=== PATIENT | male | born 1955 | race Caucasian/White ===

== ENCOUNTER 2020-05-30 21:47 | Emergency (ER) | payer MEDICARE, BC ==
[2020-05-30] MEDS ORDERED: Sodium Chloride 0.9% 1,000 ML IV ONE (21:56)
[2020-05-30] MEDS ORDERED: Diltiazem 25 MG/5 ML SDV IVPUSH ONE (21:59)
--- NOTE | 2020-05-30 22:19 | EDM.PDOC ---
ED HPI GENERAL MEDICAL PROBLEM - General Chief Complaint: Cardiovascular Problem Stated Complaint: BLOOD PRESSURE Time Seen by Provider: 05/30/20 21:50 Source of Information: Reports: Patient History Limitations: Reports: No Limitations - History of Present Illness INITIAL COMMENTS - FREE TEXT/NARRATIVE: as he lay in bed at about 9 pm felt "uncomfortable " sensation in the chest, checked his pulse and noted it was irregular. 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 Denies chest pain , dizziness , shortness of breath States this is the first time he has felt this sensation Onset: Today Onset Date: 05/30/20 Onset Time: 21:00 Duration: Getting Worse Location: Reports: Chest Quality: Reports: Ache Severity: Mild Improves with: Reports: None Worsens with: Reports: None Context: Reports: Activity Associated Symptoms: Reports: No Other Symptoms - Related Data Allergies Allergy/AdvReac Type Severity Reaction Status Date / Time No Known Allergies Allergy Verified 05/30/20 22:03 Home Meds: Home Meds Aspirin 325 mg PO DAILY #30 tab 05/31/20 [Rx] Metoprolol Succinate [Toprol XL] 25 mg PO BEDTIME #30 tab.er 05/31/20 [Rx] ED ROS GENERAL - Review of Systems Review Of Systems: See Below Constitutional: Reports: No Symptoms, Weakness. Denies: Diaphoresis HEENT: Reports: No Symptoms Respiratory: Reports: No Symptoms. Denies: Shortness of Breath, Wheezing, Pleuritic Chest Pain Cardiovascular: Reports: Palpitations Endocrine: Reports: No Symptoms GI/Abdominal: Reports: No Symptoms Musculoskeletal: Reports: No Symptoms Skin: Reports: No Symptoms Neurological: Reports: No Symptoms Psychiatric: Reports: No Symptoms Immunologic: Reports: No Symptoms ED EXAM, GENERAL - Physical Exam Exam: See Below Exam Limited By: No Limitations General Appearance: Alert, WD/WN, No Apparent Distress Eye Exam: Bilateral Eye: EOMI Ears: Normal External Exam Ear Exam: Bilateral Ear: Auricle Normal Nose: Normal Inspection Throat/Mouth: Normal Inspection, Normal Oropharynx Head: Atraumatic Neck: Supple, Limited Range of Motion Respiratory/Chest: No Respiratory Distress, Lungs Clear, Normal Breath Sounds Cardiovascular: Normal Peripheral Pulses, Regular Rate, Rhythm GI/Abdominal: Soft, Non-Tender Back Exam: Normal Inspection, Full Range of Motion Extremities: Normal Range of Motion, No Pedal Edema Neurological: Alert, Oriented, CN II-XII Intact Psychiatric: Normal Affect, Normal Mood Skin Exam: Warm, Dry, Intact Lymphatic: No Adenopathy EKG INTERPRETATION EKG Date: 05/30/20 Rhythm: A-Fib Fowler: Normal P-Wave: Variable QRS: Normal ST-T: Normal QT: Normal Course - Vital Signs Last Recorded V/S: Last Vital Signs Temp 36.9 C 05/30/20 21:48 Pulse 82 05/31/20 00:31 Resp 18 05/31/20 00:31 BP 123/80 05/31/20 00:31 Pulse Ox 97 05/31/20 00:31 - Orders/Labs/Meds Orders: Active Orders 24 hr Category Date Time Status EKG Documentation Completion [RC] ASDIRECTED Care 05/30/20 21:55 Active EKG Documentation Completion [RC] ASDIRECTED Care 05/30/20 22:26 Active EKG Documentation Completion [RC] ASDIRECTED Care 05/31/20 00:28 Active Chest 2V [CR] Stat Exams 05/30/20 22:15 Taken EKG 12 Lead [EK] Routine Ther 05/30/20 21:55 Ordered EKG 12 Lead [EK] Routine Ther 05/30/20 22:25 Ordered EKG 12 Lead [EK] Routine Ther 05/30/20 23:26 Ordered Labs: Laboratory Tests 05/30/20 05/30/20 05/30/20 Range/Units 22:00 22:00 22:00 WBC (4.5-12.0) X10-3/uL RBC (4.30-5.75) x10(6)uL Hgb (13.5-17.8) g/dL Hct (30.0-51.3) % MCV (80-96) fL MCH (27.7-33.6) pg MCHC (32.2-35.4) g/dL RDW (11.5-15.5) % Plt Count (125-369) X10(3)uL PT 10.5 (9.0-11.1) sec INR 1.01 (1.00-1.24) Sodium 139 (135-145) mmol/L Potassium 3.6 (3.5-5.3) mmol/L Chloride 103 (100-110) mmol/L Carbon Dioxide 24 (21-32) mmol/L BUN 22 H (7-18) mg/dL Creatinine 1.0 (0.70-1.30) mg/dL Est Cr Clr Drug Dosing TNP Estimated GFR (MDRD) > 60 (>60) BUN/Creatinine Ratio 22.0 H (9-20) Glucose 145 H (80-116) mg/dL Calcium 8.5 L (8.6-10.2) mg/dL Magnesium (1.8-2.5) mg/dL Troponin I 5.8 (4.0-60.3) pg/mL NT-Pro-B Natriuret Pep (<=125) pg/mL 05/30/20 05/30/20 05/30/20 Range/Units 22:00 22:00 22:00 WBC 12.0 (4.5-12.0) X10-3/uL RBC 4.87 (4.30-5.75) x10(6)uL Hgb 15.7 (13.5-17.8) g/dL Hct 46.6 (30.0-51.3) % MCV 95.8 (80-96) fL MCH 32.3 (27.7-33.6) pg MCHC 33.7 (32.2-35.4) g/dL RDW 12.9 (11.5-15.5) % Plt Count 179 (125-369) X10(3)uL PT (9.0-11.1) sec INR (1.00-1.24) Sodium (135-145) mmol/L Potassium (3.5-5.3) mmol/L Chloride (100-110) mmol/L Carbon Dioxide (21-32) mmol/L BUN (7-18) mg/dL Creatinine (0.70-1.30) mg/dL Est Cr Clr Drug Dosing Estimated GFR (MDRD) (>60) BUN/Creatinine Ratio (9-20) Glucose (80-116) mg/dL Calcium (8.6-10.2) mg/dL Magnesium 1.9 (1.8-2.5) mg/dL Troponin I (4.0-60.3) pg/mL NT-Pro-B Natriuret Pep 56 (<=125) pg/mL Meds: Medications Discontinued Medications Generic Name Dose Route Start Last Admin Trade Name Freq PRN Reason Stop Dose Admin Aspirin 324 mg 05/30/20 22:44 05/30/20 21:48 Aspirin PO 05/30/20 22:45 324 mg ONETIME ONE Administration Diltiazem HCl 20 mg 05/30/20 21:59 05/30/20 22:05 Diltiazem IVPUSH 05/30/20 22:00 20 mg ONETIME ONE Administration Sodium Chloride 1,000 mls @ 999 mls/hr 05/30/20 21:56 05/30/20 22:10 Normal Saline IV 05/30/20 22:56 999 mls/hr .BOLUS ONE Administration Metoprolol Succinate 25 mg 05/30/20 23:48 05/30/20 23:53 Toprol Xl PO 05/30/20 23:49 25 mg NOW STA Administration - Re-Assessments/Exams Free Text/Narrative Re-Assessment/Exam: 05/31/20 01:31 pt had EKG , Chest Xray and labs done. Started on IVF and cardizem. Pt observed for about one hour : HR decrease from 110-140 to 80-90 but still Afib Pt then given metoprolol discussed need to follow up with PCP for further evaluation Departure - Departure Time of Disposition: 00:30 Disposition: Home, Self-Care 01 Condition: Fair Clinical Impression: New onset a-fib, Atrial fibrillation with controlled ventricular rate, Hypertension, Dehydration, mild Prescriptions: Aspirin 325 mg PO DAILY #30 tab Metoprolol Succinate [Toprol XL] 25 mg PO BEDTIME #30 tab.er Instructions: Metoprolol extended-release tablets, Rehydration, Adult, Diltiazem injection, Managing Your Hypertension, Atrial Fibrillation, [id number], Preventing Atrial Fibrillation-Related Stroke Referrals: PCP,None [Primary Care Provider] - Forms: ED Department Discharge Additional Instructions: 1) Increase fluid / water intake and decrease amount of coffee 2) Make appointment to see your PCP in the next 2-5 days. You will need for evaluation 3) Stop Lisinopril and Hydrochlorthiazide , till you see your PCP 4) OK to start Metoprolol ( Toprol XL) Sepsis Event Note (ED) - Focused Exam Vital Signs: Vital Signs Temp Pulse Pulse Resp BP BP Pulse Ox 05/31/20 00:31 82 18 123/80 97 05/31/20 00:22 76 15 123/80 96 05/31/20 00:05 95 115/80 98 05/30/20 23:53 84 115/80 05/30/20 21:48 36.9 C 132 H 17 130/92 H 95 - My Orders Last 24 Hours: My Active Orders 05/30/20 21:55 EKG Documentation Completion [RC] ASDIRECTED EKG 12 Lead [EK] Routine 05/30/20 22:15 Chest 2V [CR] Stat 05/30/20 22:25 EKG 12 Lead [EK] Routine 05/30/20 22:26 EKG Documentation Completion [RC] ASDIRECTED 05/30/20 23:26 EKG 12 Lead [EK] Routine 05/31/20 00:28 EKG Documentation Completion [RC] ASDIRECTED - Assessment/Plan Last 24 Hours: My Active Orders 05/30/20 21:55 EKG Documentation Completion [RC] ASDIRECTED EKG 12 Lead [EK] Routine 05/30/20 22:15 Chest 2V [CR] Stat 05/30/20 22:25 EKG 12 Lead [EK] Routine 05/30/20 22:26 EKG Documentation Completion [RC] ASDIRECTED 05/30/20 23:26 EKG 12 Lead [EK] Routine 05/31/20 00:28 EKG Documentation Completion [RC] ASDIRECTED
[2020-05-30] MEDS ORDERED: Aspirin 81 MG Tab.Chew PO ONE (22:44)
[2020-05-30] MEDS ORDERED: Metoprolol Succinate 25 MG Tab.ER PO STA (23:48)
--- NOTE | 2020-05-31 11:12 | CR ---
CHEST TWO VIEWS INDICATION: Palpitations. PA and lateral views of the chest were obtained 05/30/2020 and reveal the heart to be normal in size transversely with no definite specific chamber enlargement. The aorta is tortuous with calcification in the arch. Bony structures appear to be grossly intact. Overlying EKG leads are noted. An active infiltrate or effusion was not identified. Prominent AP diameter, flattening of diaphragms leaves and hyperaeration suggest COPD. IMPRESSION: 1. No acute process. 2. COPD. 3. ASD aorta. MTDD
== END 2020-05-31 01:12 | disposition home or self-care (01) ==
LOC: FB.ED 21:47
DX: E86.0 Dehydration (principal); I10 Essential (primary) hypertension; I48.91 Unspecified atrial fibrillation
CPT/HCPCS: 36415; 71046; 80048; 83735; 83880; 84484; 85027; 85610; 93005; 96361; 96374; 99285; A9270; J3490; J7030

== ENCOUNTER 2020-08-28 06:50 | Day surgery (SDC) | payer BC, MEDICARE ==
[~2020-08-28 06:50] MED LIST: Lactated Ringers 1,000 ML IV SCH; Sodium Chloride 0.9% 10 ML Syringe FLUSH PRN
[2020-08-28] MEDS ORDERED: fentaNYL 100 MCG/2 ML SDV IV ONE (06:51)
[2020-08-28] MEDS ORDERED: Midazolam 1 MG/ML 2 ML SDV IV ONE (06:51)
[2020-08-28] MEDS ORDERED: Propofol 200 MG/20 ML SDV IV ONE (06:51)
[2020-08-28] MEDS ORDERED: Ondansetron 4 MG/2 ML SDV IVPUSH ONE (06:51)
--- NOTE | 2020-08-28 07:46 | PCM.SN.2 ---
- Free Text/Narrative Note: The need for a potential full thickness skin graft was also discussed with the patient. This will be done for coverage as needed: includes bleeding, infection poor graft take.
[2020-08-28] MEDS ORDERED: ceFAZolin 1 GM Vial IVPUSH ONE (07:52)
[2020-08-28] MEDS ORDERED: ceFAZolin 2 GM in Premix Bag 1 BAG IV ONE (08:00)
[2020-08-28] MEDS ORDERED: Lidocaine 2% 20 ML MDV INJECT ONE (08:14)
[2020-08-28] MEDS ORDERED: Bupivacaine 0.5% 30 ML SDV INJECT ONE (08:14)
--- NOTE | 2020-08-28 08:44 | PCM.OPNOTE ---
- General Post-Op/Procedure Note Date of Surgery/Procedure: 08/28/20 Operative Procedure(s): excision of squamous cell ca of left hand Findings: 3x3.5 cm lesion with 2 mm margins Pre Op Diagnosis: squaumous cell ca of skin left hand Post-Op Diagnosis: Same Anesthesia Technique: Local (2% lido with 0.5% buvipicaine 9 ml), MAC Primary Surgeon: Aquilino Barrett Anesthesia Provider: Mirian Schultz Pathology: 3 x 3.5 cm lesion EBL in mLs: 4 Complications: None Condition: Good Free Text/Narrative:: see dictation [id number]
[2020-08-28] MEDS ORDERED: Acetaminophen/Codeine 300-30 MG Tab PO PRN (08:47)
--- NOTE | 2020-08-28 09:51 | OR ---
DATE OF OPERATION: 08/28/2020 SURGEON: Aquilino Barrett MD PROCEDURE PERFORMED: Excision of a squamous cell carcinoma of the skin of the left hand. 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 INDICATIONS FOR PROCEDURE: This is a 65-year-old white male, who noticed a growth on the dorsum of his hand roughly about 3 cm in diameter in clinic. On punch biopsy, it was positive for an invasive squamous cell. The patient was offered and accepted excision with planned grafting at a later date. DESCRIPTION OF OPERATION: After an excellent IV sedation was administered, 9 mL of 1:1 mixture of 2% lidocaine and 0.5% bupivacaine was used to infiltrate the area. This did measure roughly about 3 x 3.5 cm and an additional 2 mm margin was measured out. After infiltrating the area, a circular incision was made using a combination of sharp and electrocautery dissection. The specimen was dissected down to the underlying fascia. There was one small tiny blood vessel which was clamped, divided, and tied and excised as well. Bleeding was controlled with a combination of electrocautery. There were several bleeding points that were also clamped and tied with 2-0 Vicryl ties. After assuring excellent hemostasis, the wound was dressed with Aquacel Ag, a bulky dressing was applied. The patient tolerated the procedure well, was taken to recovery. /[id number] /MODL
== END 2020-08-28 09:40 | disposition home or self-care (01) ==
LOC: FB.SDS 06:50
PROVIDERS: ATTEND Surgery
DX: C44.629 Squamous cell carcinoma of skin of left upper limb, including shoulder (principal); I10 Essential (primary) hypertension; I48.0 Paroxysmal atrial fibrillation; Z79.899 Other long term (current) drug therapy; Z79.82 Long term (current) use of aspirin; Z88.8 Allergy status to other drugs, medicaments and biological substances
CPT/HCPCS: 01810-QZ; 88305; J0690; J2001; J2250; J2405; J2704; J3010; J3490; J7120

== ENCOUNTER 2020-10-02 07:16 | Day surgery (SDC) | payer BC, MEDICARE ==
[2020-10-02] MEDS ORDERED: Propofol 200 MG/20 ML SDV IV ONE (07:17)
[2020-10-02] MEDS ORDERED: Ondansetron 4 MG/2 ML SDV IVPUSH ONE (07:17)
[2020-10-02] MEDS ORDERED: Ketamine 500 mg/10 ML MDV IV ONE (07:17)
[2020-10-02] MEDS ORDERED: Dexmedetomidine 200 MCG/2 ML SDV IV ONE (07:17)
[2020-10-02] MEDS ORDERED: fentaNYL 100 MCG/2 ML SDV IV ONE (07:17)
[2020-10-02] MEDS ORDERED: Midazolam 1 MG/ML 2 ML SDV IV ONE (07:17)
[2020-10-02] MEDS ORDERED: Lidocaine 2% 20 ML MDV INJECT ONE (09:04)
[2020-10-02] MEDS ORDERED: Bupivacaine 0.5% 30 ML SDV INJECT ONE (09:04)
[2020-10-02] MEDS ORDERED: Acetaminophen/Codeine 300-30 MG Tab PO PRN (09:55)
--- NOTE | 2020-10-02 09:57 | PCM.OPNOTE ---
- General Post-Op/Procedure Note Date of Surgery/Procedure: 10/02/20 Operative Procedure(s): full thickness skin graft Findings: 1.2x2 cm defect and graft defect dorsum of left hand donor site llq ant abd wall Pre Op Diagnosis: open wound dorsum of left hand Post-Op Diagnosis: Same Anesthesia Technique: Local (9 ml 1 % lido/0.5% buvipicaine), MAC Primary Surgeon: Aquilino Barrett Anesthesia Provider: Daya Gan Pathology: none EBL in mLs: 1 Complications: None Condition: Good Free Text/Narrative:: see dictation [id number]
--- NOTE | 2020-10-02 12:06 | OR ---
DATE OF OPERATION: 10/02/2020 SURGEON: Aquilino Barrett MD PROCEDURE PERFORMED: Full-thickness skin graft, dorsum of left hand. PREOPERATIVE DIAGNOSIS: Open wound of left hand. POSTOPERATIVE DIAGNOSIS: Open wound of left hand. INDICATIONS FOR PROCEDURE: Mr. Shen is a 65-year-old white male who recently underwent a wide local excision for what turned out to be a squamous cell carcinoma. Given the size, we could not close the wound primarily and has been allowed to granulate. He presents now for a full-thickness graft. FINDINGS: Intraoperative findings are as follows: The defect itself measured 2 x 1 cm in its greatest dimensions. It was oval shaped. 9 mL of 1:1 mixture of 1% lidocaine and 0.5% bupivacaine was used to infiltrate our areas. DESCRIPTION OF OPERATION: After an excellent IV sedation was administered, the patient was prepped and draped in usual sterile manner in the left lower quadrant of his anterior abdominal wall as well as the dorsum of his hand. Our attention was first turned to the wound where a template was created to exactly match the dimensions of the wound. This was done by outlining the defect using a sterile piece of paper that was used to wrap gloves. This was then transferred and marked out on the anterior abdominal wall on the left lower quadrant. We chose the abdominal wall given the size of the lesion and the fact that with the patient's obesity he had plenty of skin to donate to the dorsum of his hand. The area was then infiltrated with local anesthetic. An elliptical incision was carried out using a #15 scalpel blade. The specimen was passed off the field and placed in a kidney basin and soaked in Betadine. After controlling the bleeding with electrocautery, the defect was then closed with a running 3-0 Vicryl. The wound was then covered, and our attention was then turned to the patient's wound itself. The bed was excellent with very good bed of granulation tissue present. There were really no scabs or any other cleanup that needed to be done that had not been handled by the prep, which was Betadine. The fat was cut off the underside of the dermis until we just had dermis exposed, and then the skin itself was trimmed to the premarked position. It was then laid on to the field of the granulation tissue. Interrupted 3-0 Vicryl were used to tack the skin graft over the wound, catching the edge of the wound in normal skin as well as the graft. It should be noted that prior to placing the skin graft multiple puncture wounds were placed through the donor skin using a #11 scalpel blade. After tacking the wound graft down, we did irrigate underneath the graft to flush out any potential hematoma. Direct pressure was applied and any excess moisture was removed. Circumferential lidya were then placed around the wound itself to place a bolster. 3-0 black silk was then passed through the lidya themselves. A piece of Xeroform gauze was placed over the wound and a bulky dressing of Kerlix and 4x4s was placed over the wound. The bolster was then created by tying opposite ends of 3-0 black silk to each other. The wound was then dressed by placing more Kerlix in the patient's palm to ensure that the hand was in anatomic position. More bulky dressing was placed over the Kerlix bolster itself. A Kerlix was then used to keep the dressing in place, and then an Sadiq wrap was used to wrap around the Kerlix itself. The wound was then taped into position. The abdominal wound had Steri-Strips applied and then a 4 x 4 of Kerlix. The wound was then taped. The patient tolerated the procedure well, was taken to Recovery. /[id number] /MODL
== END 2020-10-02 10:49 | disposition home or self-care (01) ==
LOC: FB.SDS 07:16
PROVIDERS: ATTEND Surgery
DX: S61.402A Unspecified open wound of left hand, initial encounter (principal); C44.629 Squamous cell carcinoma of skin of left upper limb, including shoulder; G47.33 Obstructive sleep apnea (adult) (pediatric); I48.0 Paroxysmal atrial fibrillation; I10 Essential (primary) hypertension; E78.2 Mixed hyperlipidemia; N52.9 Male erectile dysfunction, unspecified; Z79.899 Other long term (current) drug therapy; Z79.82 Long term (current) use of aspirin
CPT/HCPCS: 15240; J0690; J2001; J2250; J2405; J2704; J3010; J3490; J7120

== ENCOUNTER 2020-10-08 12:27 | Emergency (ER) | payer BC ==
--- NOTE | 2020-10-08 13:43 | PCM.SURGPN ---
- General Info Date of Service: 10/08/20 POD#: 6 Post-Op Diagnosis: full thicknes skin graft to left hand - Review of Systems Musculoskeletal: Reports: Hand Pain Skin: Reports: Other (mild erythema) Systems Review Comment:: pt is sp a full thickness skin graft to his left hand last Friday. Noted some swelling and pain to his left hand. Started last pm not really controlled with Tylenol. No fever or chills - Patient Data Vitals - Most Recent: Last Vital Signs Temp 98.6 F 10/08/20 12:48 Pulse 95 10/08/20 12:48 Resp 18 10/08/20 12:48 BP 119/77 10/08/20 12:48 Pulse Ox 96 10/08/20 12:48 Weight - Most Recent: 118.388 kg - Exam Wound/Incisions: Other (dressing taken down. graft is adherent and appears to have good take. there is some mild edema and erythema on the dorsum of the left hand. no abscess. appears to be a result of the dressing as well as the bolster which is fixed in place with lidya. ) Extremities: Normal Range of Motion Skin: Warm, Dry Sepsis Event Note - Evaluation Sepsis Screening Result: No Definite Risk - Focused Exam Vital Signs: Vital Signs Temp Pulse Resp BP Pulse Ox 10/08/20 12:48 98.6 F 95 18 119/77 96 - Problem List & Annotations (1) Status post full thickness skin graft SNOMED Code(s): 084883513, 125392308 Code(s): Z94.5 - SKIN TRANSPLANT STATUS Status: Acute Annotation/Comment:: dorsum of left hand (2) Cellulitis and abscess of hand, except fingers and thumb SNOMED Code(s): 525686904 Code(s): L03.119 - CELLULITIS OF UNSPECIFIED PART OF LIMB; L02.519 - CUTANEOUS ABSCESS OF UNSPECIFIED HAND Status: Acute Annotation/Comment:: left hand. surrounding skin graft cellulitis only no abscess - Problem List Review Problem List Initiated/Reviewed/Updated: Yes - My Orders Last 24 Hours: Active Orders 24 hr Category Date Time Status Ready for Discharge [RC] PER UNIT ROUTINE Care 10/08/20 13:31 Ordered - Assessment Assessment (Free Text/Narrative):: Though this appears to be secondary to the dressing. An early cellulitis cannot be excluded. The graft looks good. No obvious source of infection. - Plan Plan (Free Text/Narrative):: Dressing was changed. Aquacel AG applied. Redressed. Short course of antibiotics. Pain medication. Will have him keep in follow up tomorrow.
== END 2020-10-08 13:40 | disposition home or self-care (01) ==
LOC: FB.ED 12:27
DX: Z53.21 Procedure and treatment not carried out due to patient leaving prior to being seen by health care provider (principal)